=== PATIENT | male | born 1955 | race Caucasian/White ===

== ENCOUNTER → 2024-12-04 12:07 | Outpatient (REF) | payer MEDICARE, BC, SELFPAY ==
[2024-12-04 16:11] LABS: Glucose 141 mg/dl (70-99)
[2024-12-06 18:00] LABS: C-Peptide 7.7 ng/mL (0.5-3.3)
== END ==
LOC: HWLAB 12:07
PROVIDERS: ATTENDING PHYSICIAN Internal Medicine; FAMILY PHYSICIAN Internal Medicine
DX: E11.3293 Type 2 diabetes mellitus with mild nonproliferative diabetic retinopathy without macular edema, bilateral (principal); Z79.4 Long term (current) use of insulin
CPT/HCPCS: 36415; 82947; 84681